=== PATIENT | female | born 1945 | race Two or more races ===

== ENCOUNTER 2018-07-05 05:00 | Day surgery (SDC) | payer OTHER ==
[~2018-07-05 05:00] MED LIST: ADULT ASPIRIN81 MG PO; COZAAR25 MG PO; MEFORMIN PO; NEURONTIN800 MG PO; SYNTHROID300 MCG PO; ZOCOR40 MG PO
[2018-07-05] MEDS ORDERED: DUI500 PO (08:43)
[2018-07-05] MEDS ORDERED: TRAM1TAB98 PO (08:43)
== END 2018-07-05 11:50 | disposition home or self-care (01) ==
LOC: CIR.AMB 05:00
DX: M23.322 Other meniscus derangements, posterior horn of medial meniscus, left knee (principal)